=== PATIENT | female | born 1940 | race Caucasian/White ===

== ENCOUNTER 2017-10-23 | Day surgery (SDC) | END 2017-10-23 09:40 | disposition home or self-care (01) ==

== ENCOUNTER 2019-06-27 12:01 | Inpatient (IN) | payer MEDICARE, OTHER ==
[~2019-06-27] VITALS: Ht 165.1 cm; Wt 153.2 kg
[~2019-06-27 12:01] MED LIST: ASPI81EC PO; ATOR40TA PO; Aspirin EC81 MG PO; FISH1000 PO; HYDACE5 PO; Hair, Skin & N1 EACH PO; LETR2.5 PO; LEVSOD50 PO; LISI5 PO; MECL12.5 PO; META800 PO; NAPR500 PO; PARO20; PROACE100; PROM25 PO; SENN187 PO; TELM80; TIZANIDINE HCL2 MG PO
[2019-06-27] MEDS ORDERED: CHLO25B PO (12:30)
[2019-06-27] MEDS ORDERED: GABA300 PO ×2 (12:30→15:17)
[2019-06-27] MEDS ORDERED: MOTION RELIEF25 MG PO (12:31)
[2019-06-27 12:35] LABS: BASOPHILS ABSOLUTE AUTO 0.03 K/mm3 (0.00-0.23); BASOPHILS PERCENT AUTO 0 % (0-2); EOSINOPHILS ABSOLUTE AUTO 0.01 K/mm3 (0.00-0.68); EOSINOPHILS PERCENT AUTO 0 % (0-6); Hematocrit 43.2 % (33.0-51.0); Hemoglobin 13.5 g/dL (11.5-16.0); IMMATURE GRAN ABSOLUTE AUTO 0.04 K/mm3 (0.00-0.10); IMMATURE GRAN PERCENT AUTO 0 % (0-1); LYMPHOCYTES ABSOLUTE AUTO 0.95 K/mm3 (0.84-5.20); LYMPHOCYTES PERCENT AUTO 10 % (21-46); MONOCYTES ABSOLUTE AUTO 1.05 K/mm3 (0.16-1.47); MONOCYTES PERCENT AUTO 11 % (4-13); Mean Corpuscular HGB 32.2 pg (26.0-34.0); Mean Corpuscular HGB Conc 31.3 g/dL (31.5-36.5); Mean Corpuscular Volume 103 fL (80-100); Mean Platelet Volume 10.1 fL (9.1-12.4); NEUTROPHILS ABSOLUTE AUTO 7.16 K/mm3 (1.96-9.15); NEUTROPHILS PERCENT AUTO 78 % (41-73); Platelet Count 146 K/mm3 (150-400); RDW Coefficient Variation 15.9 % (11.7-14.2); RDW Standard Deviation 61.3 fL (35.1-46.3); Red Blood Cell Count 4.19 M/mm3 (3.80-5.20); White Blood Cell Count 9.24 K/mm3 (4.00-11.30)
[2019-06-27 12:52] LABS: Alanine Aminotransfer (ALT/SGP 22 U/L (12-78); Albumin, Blood 3.1 g/dL (3.4-5.0); Albumin/Globulin Ratio 0.7 (0.8-1.8); Alk Phos 61 U/L (50-136); Anion Gap 7 mmol/L (6-16); Aspartate Aminotrans (AST/SGOT 32 U/L (12-37); Bilirubin, Total 0.4 mg/dL (0.1-1.0); Blood Urea Nitrogen 36 mg/dL (8-24); Bun/Creatinine Ratio 26.9 (12.0-20.0); CO2, Blood 25 mmol/L (21-32); Calcium, Blood 8.8 mg/dL (8.5-10.1); Chloride, Blood 105 mmol/L (98-108); Creatinine, Blood 1.34 mg/dL (0.40-1.00); Globulin, Blood 4.3 g/dL (2.2-4.0); Glomerular Filtration Rate 41 (60-); Glucose, Blood 126 mg/dL (70-99); Potassium, Blood 4.3 mmol/L (3.5-5.5); Sodium, Blood 137 mmol/L (136-145); Total Protein, Blood 7.4 g/dL (6.4-8.2); Troponin I <0.015 ng/mL (0.000-0.040)
[2019-06-27] MEDS ORDERED: Altoprev40 MG PO (15:16)
[2019-06-27] MEDS ORDERED: Zantac150 MG PO (15:18)
[2019-06-27] MEDS ORDERED: ACET500 PO (15:19)
[2019-06-27 15:38] LABS: Magnesium, Blood 1.8 mg/dL (1.6-2.4)
[2019-06-27 15:40] LABS: Thyroid Stimulating Hormone 1.28 uIU/mL (0.360-4.800)
[2019-06-27 15:47] LABS: Appearance, Urine Cloudy (Clear); Bilirubin, Urine Neg (Neg); Blood, Urine 4+ (Neg); Color, Urine Yellow (P-Yellow); Glucose Qualitative, Urine Neg (Neg); Ketones, Urine Neg (Neg); Leukocyte Esterase, Urine 2+ (Neg); Nitrite, Urine Neg (Neg); Protein, Urine 2+ (Neg); Specific Gravity, Urine 1.015 (1.003-1.022); Urobilinogen, Urine NORM (Normal)
[2019-06-27 15:54] LABS: White Blood Cells, Urine 25-50 /hpf (0-5)
[2019-06-27 15:55] LABS: Bacteria Many /hpf; Squamous Epithelial Cells Few /hpf (Few)
[2019-06-27 15:57] LABS: Creatine Kinase MB 1.5 ng/mL (0.0-3.6); Creatine Kinase MB Index 0.2 (0.0-4.0)
--- NOTE | 2019-06-27 18:49 | NUR ---
LAB VERIFIED FLU SWAB OBTAINED FROM ER, [facility] SO THAT IT MAY BE PROCESSED NOW BY LAB.
[2019-06-27 19:20] LABS: Influenza A Negative (NEGATIVE); Influenza B Negative (NEGATIVE)
--- NOTE | 2019-06-27 20:23 | NUR ---
190 TEMP 102, TYLENOL 650MG PO GIVEN. 2014 TEMP 101, REPOSITIONED LEFT SIDE SIDE X 2 ASSIST.
--- NOTE | 2019-06-27 22:34 | NUR ---
LACTIC ACID=1.0, TRAVON BEAUCHAMP RN, CHARGE NURSE ADVISED.
--- NOTE | 2019-06-28 04:10 | NUR ---
SHIFT SUMMARY: 78 Y/O OBESE FEMALE RESTED COMFORTABLY ALL SHIFT WITH FAMILY SPENDING NIGHT AT SIDE, ALERT AND ORIENTED X 2 AND REQUIRES OCCASIONAL REDIRECTION, TAYLOR DRAINING DARK YELLOW FLUID, PT HAD TEMPERATURE 102.0 BEGINNING OF SHIFT WITH HOSPITALIST NOTIFIED WITH ORDERS (AFEBRILE NOW), SKIN WARM AND DRY, WEARING O2 AT 2L/M PER NASAL CANNULA, DENIES PAIN OR NAUSEA, BED ALARM APPLIED, BED LOW POSITION WITH CALL LIGHT AT SIDE.
[2019-06-28 04:44] LABS: BASOPHILS ABSOLUTE AUTO 0.03 K/mm3 (0.00-0.23); BASOPHILS PERCENT AUTO 0 % (0-2); EOSINOPHILS ABSOLUTE AUTO 0.02 K/mm3 (0.00-0.68); EOSINOPHILS PERCENT AUTO 0 % (0-6); Hematocrit 36.8 % (33.0-51.0); Hemoglobin 11.3 g/dL (11.5-16.0); IMMATURE GRAN ABSOLUTE AUTO 0.03 K/mm3 (0.00-0.10); IMMATURE GRAN PERCENT AUTO 0 % (0-1); LYMPHOCYTES ABSOLUTE AUTO 1.17 K/mm3 (0.84-5.20); LYMPHOCYTES PERCENT AUTO 15 % (21-46); MONOCYTES ABSOLUTE AUTO 1.12 K/mm3 (0.16-1.47); MONOCYTES PERCENT AUTO 15 % (4-13); Mean Corpuscular HGB 31.8 pg (26.0-34.0); Mean Corpuscular HGB Conc 30.7 g/dL (31.5-36.5); Mean Corpuscular Volume 104 fL (80-100); Mean Platelet Volume 10.3 fL (9.1-12.4); NEUTROPHILS ABSOLUTE AUTO 5.36 K/mm3 (1.96-9.15); NEUTROPHILS PERCENT AUTO 69 % (41-73); Platelet Count 127 K/mm3 (150-400); RDW Standard Deviation 62.2 fL (35.1-46.3); Red Blood Cell Count 3.55 M/mm3 (3.80-5.20); White Blood Cell Count 7.73 K/mm3 (4.00-11.30)
[2019-06-28 05:04] LABS: Bun/Creatinine Ratio 24.8 (12.0-20.0); Calcium, Blood 7.9 mg/dL (8.5-10.1); Creatinine, Blood 1.57 mg/dL (0.40-1.00); Potassium, Blood 4.3 mmol/L (3.5-5.5)
--- NOTE | 2019-06-28 11:02 | NUR ---
LATE ENTRY SHIFT SUMMARY 06/27/19 @1920. 1658 PT ADMITTED TO MEDICAL FLOOR VIA FURNEY, SLIDE TRANSFERED TO BED WITH 5 STAFF. A&OX3, PLEASANT AND COOPERATIVE. PT REPORTS FALL AT HOME, USUALLY W/C BOUND BUT ABLE TO PIVOT TRANSFER TO CHAIR AND TOILET. PT REPORTED INCREASING WEAKNESS AND UNABLE TO STAND. PT REPORTS PAIN TO FEET SECONDARY TO FALL MANAGED WITH CURREN ORDERS. PT DENIES SOB, ON 2L O2 NC AT TIME OF ADMIT SECONDARY TO SPO2 < 90%. LUNGS CLEAR. DENIES N/V. PT WITH COLOSTOMY TO L ABD. L ABD WITH MODERATE DISTENTION COMPARTED TO R ABD. FAMILY AND PT REPORT THAT THIS HAS PROGRESSED OVER THE PAST 2 MONTHS. PT REPORTS COLOSTOMY FUNCTIONING REGULARLY. FAMILY AT BEDSIDE SINCE SHORTLTY AFTER ADMIT. IV NS STARTED AT 100 ML/HR. FLU VACCINE GIVEN. APAP GIVEN FOR ELEVATED TEMP.
--- NOTE | 2019-06-28 18:19 | NUR ---
SHIFT SUMMARY. A&OX3, INTERMITTENT CONFUSION, COOPERATIVE AND PLEASANT. PT DENIES SOB. PT STARTED SHIFT ON 2L O2 NC, PT IS NOW ON RA WITH SPO2 GREATER THAN 94%. LUNGS CLEAR. PT DENIES N/V, GOOD MEAL INTAKE. PT CONTINUES WITH PAIN TO BILATERAL FEET, STARTED PRN TRAMODOL AND PT REPORTS PAIN IS MANAGED NOW. BILATERAL ANKLE XR COMPLETED, CT ABD COMPLETED. FAMILY AT BEDSIDE DURING MOST OF THE SHIFT.
--- NOTE | 2019-06-29 04:53 | NUR ---
SHIFT SUMMARY: 78 Y/O FEMALE, ADMITTED FOR UTI, DEHYDRATION AND WEAKNESS. SHE HAD A VERY UNEVENTFUL NIGHT. MOST COMPLAINT SHE HAD WAS MILD PAIN IN HER ANKLES AND LEGS. TRAMADOL WAS GIVEN X2 WHICH HELPED TO RELEIVE THE PAIN. SHE WAS ALSO GIVEN LEG MASSAGE AND LOTION RUB BY THE HADOOP ARCHITECT. FEET WERE ELEVATED ON PILLOWS WELL. IV CONTINUED TO INFUSE WITH NO PROBLEMS, CATHETER STAYED PATENT AND DRAINING. MEDS WERE ADMINISTERED PER EMAR. NO OTHER ACUTE CHANGES WERE NOTED, WILL REPORT TO DAY SHIFT RN.
[2019-06-29 05:12] LABS: BASOPHILS ABSOLUTE AUTO 0.03 K/mm3 (0.00-0.23); BASOPHILS PERCENT AUTO 0 % (0-2); EOSINOPHILS ABSOLUTE AUTO 0.07 K/mm3 (0.00-0.68); EOSINOPHILS PERCENT AUTO 1 % (0-6); Hematocrit 37.6 % (33.0-51.0); Hemoglobin 11.4 g/dL (11.5-16.0); IMMATURE GRAN ABSOLUTE AUTO 0.04 K/mm3 (0.00-0.10); IMMATURE GRAN PERCENT AUTO 1 % (0-1); LYMPHOCYTES ABSOLUTE AUTO 1.46 K/mm3 (0.84-5.20); LYMPHOCYTES PERCENT AUTO 19 % (21-46); MONOCYTES ABSOLUTE AUTO 1.23 K/mm3 (0.16-1.47); MONOCYTES PERCENT AUTO 16 % (4-13); Mean Corpuscular HGB 31.5 pg (26.0-34.0); Mean Corpuscular HGB Conc 30.3 g/dL (31.5-36.5); Mean Corpuscular Volume 104 fL (80-100); Mean Platelet Volume 10.9 fL (9.1-12.4); NEUTROPHILS ABSOLUTE AUTO 4.74 K/mm3 (1.96-9.15); NEUTROPHILS PERCENT AUTO 63 % (41-73); Platelet Count 140 K/mm3 (150-400); RDW Coefficient Variation 15.6 % (11.7-14.2); RDW Standard Deviation 59.7 fL (35.1-46.3); Red Blood Cell Count 3.62 M/mm3 (3.80-5.20); White Blood Cell Count 7.57 K/mm3 (4.00-11.30)
[2019-06-29 05:29] LABS: Albumin, Blood 2.3 g/dL (3.4-5.0); Anion Gap 8 mmol/L (6-16); Blood Urea Nitrogen 31 mg/dL (8-24); Bun/Creatinine Ratio 25.8 (12.0-20.0); CO2, Blood 23 mmol/L (21-32); Calcium, Blood 8.4 mg/dL (8.5-10.1); Chloride, Blood 109 mmol/L (98-108); Glomerular Filtration Rate 46 (60-); Glucose, Blood 113 mg/dL (70-99); Phosphorus, Blood 2.7 mg/dL (2.5-4.9); Potassium, Blood 4.2 mmol/L (3.5-5.5); Sodium, Blood 140 mmol/L (136-145)
--- NOTE | 2019-06-29 16:24 | NUR ---
DR WRIGHT CALLED REGARDING SURGICAL CONSULT AND ABDOMINAL HERNIA. PER DR WRIGHT HE REVIEWED PT CT AND REPORTS PT NEEDS TO FOLLOW UP WITH HER SURGEON THAT PLACED TO OSTOMY AN OUTPATIENT. DR SANDERS NOTIFIED AND AGREED. I NOTIFIED PT WHO REPORTS SHE WILL NOT GO BACK UP TO [place] FOR IT, I INFORMED PT SHE CAN TALK TO HER PCP ABOUT POSSIBLE SEEING A LOCAL SURGEON AN OUTAPTIENT ONCE SHE IS DISCHAGED FROM THE HOSPITAL.
--- NOTE | 2019-06-29 16:47 | NUR ---
repositioned pt. on right side. nurse placed barrier cream on bottom right and left sides. gage care and new attends. used bed king. place lift shift under pt. for transfer later.
--- NOTE | 2019-06-29 18:32 | NUR ---
SHIFT SUMMARY- PT A/O, PLESANT AND COOPERATIVE. PT HAS LIMITED MOBILITY AND REQUIRES MAX ASSISTANCE TO CHANGE POSITIONS IN BED. REMOVED TAYLOR THIS AFTERNOON PER ORDERS. DISCONTINUED TELE PER ORDER. PT RECIEVED PAIN MEDICATIONS PER OCT. PT THIRD DIGIT ON THE RIGHT TOE WAS RED AND VERY PAINFUL. DR. PALOMINO NOTIFIED AND ORDERED X-RAYS WHICH WERE PREFORMED IN THE ROOM.
[2019-06-30 05:28] LABS: BASOPHILS ABSOLUTE AUTO 0.02 K/mm3 (0.00-0.23); BASOPHILS PERCENT AUTO 0 % (0-2); EOSINOPHILS ABSOLUTE AUTO 0.11 K/mm3 (0.00-0.68); EOSINOPHILS PERCENT AUTO 1 % (0-6); Hematocrit 35.5 % (33.0-51.0); Hemoglobin 11.2 g/dL (11.5-16.0); IMMATURE GRAN ABSOLUTE AUTO 0.04 K/mm3 (0.00-0.10); IMMATURE GRAN PERCENT AUTO 1 % (0-1); LYMPHOCYTES ABSOLUTE AUTO 1.24 K/mm3 (0.84-5.20); LYMPHOCYTES PERCENT AUTO 16 % (21-46); MONOCYTES ABSOLUTE AUTO 1.16 K/mm3 (0.16-1.47); MONOCYTES PERCENT AUTO 15 % (4-13); Mean Corpuscular HGB 32.4 pg (26.0-34.0); Mean Corpuscular HGB Conc 31.5 g/dL (31.5-36.5); Mean Corpuscular Volume 103 fL (80-100); Mean Platelet Volume 10.4 fL (9.1-12.4); NEUTROPHILS ABSOLUTE AUTO 5.16 K/mm3 (1.96-9.15); NEUTROPHILS PERCENT AUTO 67 % (41-73); Platelet Count 141 K/mm3 (150-400); RDW Standard Deviation 57.1 fL (35.1-46.3); Red Blood Cell Count 3.46 M/mm3 (3.80-5.20); White Blood Cell Count 7.73 K/mm3 (4.00-11.30)
[2019-06-30 05:48] LABS: Bun/Creatinine Ratio 20.9 (12.0-20.0); Calcium, Blood 8.9 mg/dL (8.5-10.1); Creatinine, Blood 1.1 mg/dL (0.40-1.00); Potassium, Blood 4.3 mmol/L (3.5-5.5)
[2019-06-30 12:07] LABS: HEPARIN INDUCED PLATELET AB 0.151 OD (0.000-0.400)
--- NOTE | 2019-06-30 14:57 | NUR ---
Spiritual Care inital note: Mrs. Garcia was awake and alert. Dtr and grand-daughter at bedside. Pt admits to feeling fearful and appears anxious. Family appears exhausted. Apparently, pt lives alone and is not managing well. Pt and family non-yazidi and declined prayer. Offered encouragement and asurance of care. Encouraged expressing needs to staff. I will remain available.
--- NOTE | 2019-06-30 16:31 | NUR ---
SHIFT SUMMARY NO ACUTE CHANGES. PATIENT MEDICATED X2 FOR PAIN, X 1 FOR VERTIGO/DIZZINESS. DENIES SHORTNESS OF BREATH. PATIENT WORKED WITH PT/OT TODAY. PATIENT DANGLED ON SIDE OF BED BUT DID NOT STAND. TWO PERSON ASSIST WITH BEDPAN. NO STOOL FROM OSTOMY IN SEVERAL DAYS. BOWEL CARE GIVEN. CALL LIGHT IN REACH.
--- NOTE | 2019-06-30 21:36 | NUR ---
DAUGHTER FRANKI WOULD LIKE TO BE CALLED WHEN DISCHARGE PLANS ARE DISCUSSED: [phone] OR HER WORK NUMBER IS [phone]. SHE WILL BE INVOLVED IN CAREGIVING TO ASSIST HER MOM.
--- NOTE | 2019-07-01 00:18 | NUR ---
Patient was able to pass a very large soft stool after bowel protocol meds at .
[2019-07-01] MEDS ORDERED: CEFP200 (10:17)
[2019-07-01] MEDS ORDERED: TRAM50 PO (10:18)
[2019-07-01] MEDS ORDERED: ACET325 PO (10:18)
--- NOTE | 2019-07-01 12:19 | NUR ---
DISCHARGE DISCHARGE TO [facility] FOR REHAB. DISCHARGE PACKET SEND WITH PATIENT APPOINTMENT COORDINATOR. PATIENT TRANSFERED TO WHEELCHAIR VIA LIFT. PATIENT HAD HOME 02 EVAL TODAY, PATIENT LEAVING ON 2L/NC. REPORT CALLED TO [facility] NURSE. FAMILY AWARE OF DISCHARGE. IV REMOVED WITHOUT DIFFICULTY. BELONGINGS WITH FAMILY.
== END 2019-07-01 12:23 | DRG 872 ==
LOC: ER 12:01 → MEDS 12:02 → ENPENDDIS 07-01 10:28 → MEDS 07-01 12:23
PROVIDERS: Emergency Medicine; Nurse Practitioner Acute Care; ADMIT Internal Medicine
DX: A41.9 Sepsis, unspecified organism (principal); N39.0 Urinary tract infection, site not specified; N17.9 Acute kidney failure, unspecified; Z68.43 Body mass index [BMI] 50.0-59.9, adult; E03.9 Hypothyroidism, unspecified; Z85.038 Personal history of other malignant neoplasm of large intestine; Z85.3 Personal history of malignant neoplasm of breast; R09.02 Hypoxemia; K43.5 Parastomal hernia without obstruction or gangrene; E66.01 Morbid (severe) obesity due to excess calories; M25.572 Pain in left ankle and joints of left foot; M25.571 Pain in right ankle and joints of right foot; Z23 Encounter for immunization; B96.4 Proteus (mirabilis) (morganii) as the cause of diseases classified elsewhere; Z87.891 Personal history of nicotine dependence; W19.XXXA Unspecified fall, initial encounter; R32 Unspecified urinary incontinence; E78.5 Hyperlipidemia, unspecified; Z93.3 Colostomy status; E86.0 Dehydration; T79.6XXA Traumatic ischemia of muscle, initial encounter; I95.9 Hypotension, unspecified; D69.6 Thrombocytopenia, unspecified; D64.9 Anemia, unspecified; I12.9 Hypertensive chronic kidney disease with stage 1 through stage 4 chronic kidney disease, or unspecified chronic kidney disease; N18.3 Chronic kidney disease, stage 3 (moderate)
CPT/HCPCS: 36415; 51702; 71045; 73610; 73630; 74176; 80048; 80053; 80069; 81001; 82306; 82550; 82553; 83605; 83735; 84443; 84484; 85025; 86022; 87040; 87077; 87086; 87186; 87804; 90686; 93005; 93010; 94761; 96361; 96361-59; 96365-59; 96366; 96372; 97110; 97163; 97166; 97530; 97535; 99285-25; A9270; G0008; G0378; J0696; J1644; J7030